=== PATIENT | female | born 1955 | race Caucasian/White ===

== ENCOUNTER → 2019-01-03 | Outpatient (CLI) | payer BC, OTHER ==
[~2019-01-03] VITALS: Ht 162.6 cm; Wt 99.8 kg
[~2019-01-03] MED LIST: CELEXA40 MG PO; NEURONTIN 300M300 M2 PO; VITAMIN D1000 UNI1 PO
[2019-01-03 09:18] LABS: URINE BILIRUBIN NEGATIVE (Negative); URINE BLOOD NEGATIVE (Negative); URINE CLARITY CLEAR; URINE COLOR YELLOW; URINE GLUCOSE-RANDOM* NEGATIVE (Negative); URINE KETONES NEGATIVE (Negative); URINE LEUKOCYTES-REFLEX TRACE (Negative); URINE NITRITE-REFLEX NEGATIVE (Negative); URINE PROTEIN (DIPSTICK) NEGATIVE (Negative); URINE SPECIFIC GRAVITY <= 1.005 (1.005-1.035); URINE UROBILINOGEN 0.2 E.U./dl (0.2-1.0)
[2019-01-03 09:19] LABS: HEMATOCRIT 36.9 % (37.0-47.0); HEMOGLOBIN 12.4 gm/dL (12.0-15.0); MCH 31.1 pg (26.0-34.0); MCHC 33.5 g/dL (28.0-37.0); MCV 92.9 fL (80.0-100.0); RBC 3.98 mil/uL (4.20-5.00); RDW 14.6 % (10.5-14.5); WBC 4.3 thou/uL (4.0-11.0)
[2019-01-03 09:32] LABS: PROTIME 9.6 Seconds (9.3-11.4)
[2019-01-03 09:36] LABS: ALBUMIN 3.7 g/dL (3.4-5.0); CREATININE 0.8 mg/dL (0.6-1.0); POTASSIUM 4.2 mmol/L (3.5-5.1)
--- NOTE | 2019-01-04 08:37 | EKG ---
[place] [address] [facility] [employer] [place] [address] ELECTROCARDIOGRAM REPORT Name: KYAW NAZARIO Room #: PRE IN ..#: [id number] Admission: Attend Phys: Eusebio Scott MD Discharge: Date of : 55 Report #: [id number] THIS REPORT FOR: //name// [facility] Test Date: 2019-01-03 Test Time: 09:14:19 Pat Name: KYAW NAZARIO Department: Room: Gender: F [employer]asting [employer]sembler: Herman TAN : 1955 Requested By: Eusebio Scott Order Number: [id number] MD: Hua Cohen Measurements Intervals [place] Rate: 65 P: 5 NC: 140 QRS: -10 QRSD: 86 T: 0 QT: 432 QTc: 450 Interpretive Statements Sinus rhythm Borderline T abnormalities, inferior leads No previous ECG available for comparison Electronically Signed On 01-04-2019 8:37:41 CDT by Hua Cohen [email or web address] <ELECTRONICALLY SIGNED> By: Hua Cohen MD, [facility] 01/04/19 0837 0914 3 Hua Cohen MD, FACC /EPI
== END ==
LOC: PAC 12:00 → PRE 01-29 08:38 → EDSTATUS 01-29 12:31 → OR 01-29 15:28 → PRE 01-29 22:36
PROVIDERS: Orthopaedic Surgery
DX: I10 Essential (primary) hypertension (principal)

== ENCOUNTER 2019-04-30 08:12 | Day surgery (SDC) | payer BC, OTHER ==
[2019-04-23 08:53] LABS: HEMATOCRIT 38.5 % (37.0-47.0); HEMOGLOBIN 12.7 gm/dL (12.0-15.0); MCH 30.7 pg (26.0-34.0); MCHC 33.1 g/dL (28.0-37.0); MCV 92.9 fL (80.0-100.0); RBC 4.15 mil/uL (4.20-5.00); RDW 14.9 % (10.5-14.5); WBC 5.2 thou/uL (4.0-11.0)
[2019-04-23 09:00] LABS: ALBUMIN 3.9 g/dL (3.4-5.0); CALCIUM 9.7 mg/dL (8.5-10.1); CREATININE 0.8 mg/dL (0.6-1.0); POTASSIUM 3.6 mmol/L (3.5-5.1)
[2019-04-23 09:05] LABS: PROTIME 9.7 Seconds (9.3-11.4)
[2019-04-23 09:20] LABS: URINE BILIRUBIN NEGATIVE (Negative); URINE BLOOD NEGATIVE (Negative); URINE CLARITY CLEAR; URINE COLOR YELLOW; URINE GLUCOSE-RANDOM* NEGATIVE (Negative); URINE KETONES NEGATIVE (Negative); URINE LEUKOCYTES-REFLEX NEGATIVE (Negative); URINE NITRITE-REFLEX NEGATIVE (Negative); URINE PROTEIN (DIPSTICK) NEGATIVE (Negative); URINE SPECIFIC GRAVITY <= 1.005 (1.005-1.035); URINE UROBILINOGEN 0.2 E.U./dl (0.2-1.0)
[~2019-04-30] VITALS: Ht 162.6 cm; Wt 97.1 kg
[~2019-04-30 08:12] MED LIST changes: +GRALISE600 MG PO
[2019-04-30 09:17] VITALS: BP 129/64
[2019-04-30 14:15] VITALS: BP 124/62
[2019-04-30 14:30] VITALS: BP 118/52
[2019-04-30 14:45] VITALS: BP 115/50
[2019-04-30 15:15] VITALS: BP 117/49
[2019-04-30 19:31] VITALS: BP 131/55
--- NOTE | 2019-04-30 19:31 | NUR ---
PT CARE ASSUMED AT 1544. A&Ox4. PT POST OPERATIVE VITALS STABLE. POLAR PACK IN PLACE. ABBY DRESSING INTACT. PT UP WITH PT TODAY. PT CAN DISCHARGE TOMORROW AFTER PT EVALUATES HER ONE MORE TIME. VOIDING GOOD AND TOLERATING DIET. BED IN LOW POSITION, LOCKED, WITH BED ALARM ON. CALL LIGHT IN REACH. SCD IN PLACE.
--- NOTE | 2019-05-01 04:11 | NUR ---
ASSUMED PATIENT CARE AT SHIFT CHANGE. PATIENT IS A&OX4, VOICES PAIN AT 6/10; PRN PAIN MEDS ADMINISTERED PER JUN. ABBY DRESSING IS INTACT AND C/D/I, POLAR PACK IS ON AND WORKING. SCD'S ARE IN PLACE AND ON. HEAD TO TOE ASSESSMENT COMPLETED; ALL FINDINGS WNL. PATIENT AMBULATED TO BATHROOM X 3 THIS SHIFT AND DID WELL WITH MINIMAL C/O PAIN. PATIENT TO BE RE-EVALUATED BY PT LATER TODAY AND THEN TO D/C BACK HOME. FALL PRECAUTIONS IN PLACE, PATIENT CALLS OUT APPROPRIATELY. PATIENT IS RECIEVING IV FLUIDS AND ANTIBIOTICS. PATIENT VOICES NO OTHER CONCERNS AT THIS TIME. WILL CONTINUE TO MONITOR AND FOLLOW POC
[2019-05-01 04:20] VITALS: BP 114/57
[2019-05-01 06:11] LABS: HEMATOCRIT 33.7 % (37.0-47.0); HEMOGLOBIN 10.8 gm/dL (12.0-15.0); MCH 30.5 pg (26.0-34.0); MCHC 32.2 g/dL (28.0-37.0); MCV 94.7 fL (80.0-100.0); RBC 3.56 mil/uL (4.20-5.00); RDW 15.1 % (10.5-14.5); WBC 8.5 thou/uL (4.0-11.0)
[2019-05-01 09:02] VITALS: BP 117/56
--- NOTE | 2019-05-01 10:39 | NUR ---
INITIAL ASSESSMENT: Pt evaluated for d/c planning needs. Reviewed chart and spoke with nurse, pt and spouse. Pt is alert and oriented. Pt lives in house with spouse and was independent with ADL's prior to admission to the hospital. Pt has walker and cane at home, and has not had home health in the past. Pt has outpatient PT scheduled for Tuesday. Pt plans on returning home on d/c from hospital. Will remain available to assist as needed.
[2019-05-01 13:23] VITALS: BP 117/56
--- NOTE | 2019-05-01 13:28 | NUR ---
PT CARE ASSUMED AT 0700. A&Ox4. PT IS HERE FOR 24HR OBSERVATION POST OPERATIVE. VITALS ARE STABLE. PT WAS RELEASED BY PT AND IS BEING DISCHARGED. IV REMOVED. ABBY DRESSING IS INTACT. POLAR PACK IN PLACE. PT IS UP WITH GATE BELT AND A WALKER. PT HAS NOT REQUESTED ANY PAIN MEDICATIONS.
--- NOTE | 2019-05-02 15:58 | O ---
[facility] [place] [address] OPERATIVE REPORT Name: KYAW NAZARIO Room #: DEP [facility] M..#: [id number] Admission: 04/30/19 Attend Phys: Eusebio Scott MD Discharge: 05/01/19 Date of : 55 Report #: [id number] THIS REPORT FOR: //name// CC: Farhana Scott DATE OF SERVICE: 04/30/2019 PREOPERATIVE DIAGNOSIS: Right knee medial compartment osteoarthritis. POSTOPERATIVE DIAGNOSIS: Right knee medial compartment osteoarthritis. PROCEDURE: Right medial compartment knee arthroplasty using Navio robotic assistance. SURGEON: Eusebio Scott MD. FIRST RESPONDER: Caron Boston PA-C. INDICATIONS FOR FIRST RESPONDER: Throughout the case, extensive retraction and manipulation of the knee was required. This was afforded to me by my optometry assistant. ANESTHESIA: LMA with an adductor canal block. IMPLANTS: Romo [employer] Nephew size 4 Journey II Oxinium medial femoral component. A size 3 tibial component, size 8 polyethylene. TOURNIQUET TIME: 54 minutes. ESTIMATED BLOOD LOSS: 25 mL. COMPLICATIONS: None. SPECIMENS: None. CONDITION UPON LEAVING THE OPERATING ROOM: Stable. INDICATIONS FOR PROCEDURE: The patient is a 63-year-old female with right knee medial compartment osteoarthritis. She had failed conservative measures for this and after discussion with her, she elected for right medial compartment knee arthroplasty. DESCRIPTION OF PROCEDURE: Risks, benefits, alternatives, complications were discussed in detail with the patient including but not limited to risk of anesthesia, risk of damage to nerves, arteries, blood vessels, risk for infection, bleeding, risk for continued knee pain and need for reoperation. [facility] [address] [place] [address] OPERATIVE REPORT Name: KYAW NAZARIO Room #: DEP [facility] M..#: [id number] Admission: 04/30/19 Attend Phys: Eusebio Scott MD Discharge: 05/01/19 Date of : 55 Report #: [id number] Informed consent was obtained from the patient. The right knee was appropriately marked in the preoperative holding area. Adductor canal block was placed by Anesthesia. She was brought to the operating room and placed in supine position on operating room table. LMA anesthesia was induced without complication. Tourniquet was placed on the right thigh. Right lower extremity was prepped and draped in normal sterile fashion. Timeout was performed properly identifying the patient and procedure as well as the instrumentation and implants. All in the operating room were in agreement. Right lower extremity was exsanguinated, tourniquet was inflated. Tourniquet time was 54 minutes. Standard approach to the medial knee was made with 10 blade through the skin. Dissection was taken down sharply to the fascia and deep flaps were developed medially and laterally. Fresh 10 blade was used to make a medial parapatellar arthrotomy and the knee was inspected. There was severe medial compartment osteoarthritis. Lateral compartment was well maintained. 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 It was decided to proceed with unicompartmental knee arthroplasty. Reference pins were placed in the femur and the tibia. The knee was digitally mapped using the [employer] robotic system. Intraoperative plan was made and we sized the size 4 femur, a size 3 tibia. After acceptance of the intraoperative plan, the femoral and tibial resections were made with Navio bur. Remainder of the meniscus was removed with Bovie cautery. Tibia was sized, found to be a size 3. Size 3 tibial trial was pinned and drilled. A size 4 femoral trial was placed and this was then trialed with a size 8 polyethylene. Knee was taken through range of motion, found to have a millimeter of laxity medially throughout range of motion of the knee. After this, trial components were removed. Bony ends were thoroughly irrigated with normal saline. A final size 3 tibia, size 4 Journey medial Oxinium component were cemented in place using standard cementation techniques. While the cement cured, a periarticular injection consisting of morphine, ropivacaine, epinephrine and Toradol was placed around the knee joint capsule. After the cement cured, the tourniquet was deflated. Hemostasis was obtained with Bovie cautery. A final size 8 polyethylene was placed. A gram of vancomycin was placed deep in the joint. The fascia was closed with 0 Vicryl, skin was closed with 2-0 Vicryl, skin staple and a ABBY dressing was applied. The patient tolerated this procedure well and went to recovery room under care of anesthesia postoperatively. <ELECTRONICALLY SIGNED> By: Eusebio Scott MD 05/02/19 1558 1740 1803 Eusebio Scott MD /nt
== END 2019-05-01 14:30 | disposition home or self-care (01) ==
LOC: OR 08:12 → TBA 08:12 → OR 08:21 → 4S 14:28 → OR 15:26
PROVIDERS: Orthopaedic Surgery
DX: M17.11 Unilateral primary osteoarthritis, right knee (principal); M25.561 Pain in right knee; M25.562 Pain in left knee; F32.9 Major depressive disorder, single episode, unspecified; G47.30 Sleep apnea, unspecified; Z98.890 Other specified postprocedural states; Z79.899 Other long term (current) drug therapy; Z90.49 Acquired absence of other specified parts of digestive tract; Z88.8 Allergy status to other drugs, medicaments and biological substances
CPT/HCPCS: 10102; 50010; 50101; 50415; 50954; 51130; 51225; 51320; 51412; 52001; 52282; 53078; 53370; 54118; 56527; 56528; 57095; 57103; 57110; 57127; 57180; 62110; 62900; 64042; 70005